=== PATIENT | male | born 1990 | race Caucasian/White ===

== ENCOUNTER 2024-03-30 12:55 | Inpatient (IN) | payer OTHER ==
[~2024-03-30] VITALS: Ht 172.7 cm; Wt 77.6 kg
[2024-03-30 14:00] VITALS: BP 148/97; PULSE 98; RESP 18; TEMP 98.1; O2SAT 98
[2024-03-30] MEDS ORDERED: MECLIZINE HCL 25 MG TABLET PO PRN (15:00)
[2024-03-30] MEDS ORDERED: SENNOSIDES 8.6 MG TABLET PO PRN (15:15)
[2024-03-30] MEDS: LIDOCAINE 5% TRANSDERMAL PATCH TD SCH (17:03)
[2024-03-30 20:00] VITALS: BP 148/81; PULSE 102; RESP 20; TEMP 98.3; O2SAT 97; O2SAT 98
[2024-03-30] MEDS: OxyCODONE HCL 5 MG IR TABLET PO PRN (20:34)
[2024-03-30] MEDS: MELATONIN 3 MG TABLET PO PRN (20:34)
[2024-03-30] MEDS: GABAPENTIN 300 MG CAPSULE PO SCH (20:35)
[2024-03-30] MEDS: ETHYL ALCOHOL 62% ANTISEPTIC NASAL SANITIZER 0.6 ML AMPUL NASAL SCH (20:35)
[2024-03-30] MEDS: -LIDODERM PATCH NOTE- MISC SCH (20:36)
[2024-03-31 06:06] LABS: BASOPHILS % (AUTO) 0.4 % (0.0-2.0); EOSINOPHILS % (AUTO) 2.7 % (1.0-6.0); HEMATOCRIT 43.8 % (41-53); HEMOGLOBIN 14.7 g/dL (13.5-17.5); LYMPHOCYTES # (AUTO) 2.5 K/uL (1.0-4.8); LYMPHOCYTES % (AUTO) 28.6 % (22.0-44.0); MEAN CORPUSCULAR HEMOGLOBIN 29.7 pg (26.0-34.0); MEAN CORPUSCULAR HGB CONC 33.6 G/dL (31.0-37.0); MEAN CORPUSCULAR VOLUME 88 fL (80-100); MONOCYTES # (AUTO) 0.8 K/uL (0.1-1.0); MONOCYTES % (AUTO) 8.6 % (2.0-9.0); NEUTROPHILS # (AUTO) 5.3 K/uL (1.8-7.7); NEUTROPHILS % (AUTO) 59.7 % (40.0-70.0); PLATELET COUNT (AUTO) 297 K/uL (150-450); RED BLOOD CELL COUNT(AUTO) 4.96 MIL/uL (4.50-5.90); RED CELL DISTRIBUTION WIDTH 13.4 % (11.5-14.5); WHITE BLOOD COUNT (AUTO) 8.9 K/uL (4.5-11.0)
[2024-03-31 06:32] LABS: ALANINE AMINOTRANSFERASE 187 U/L (12-78); ALBUMIN 3.3 g/dL (3.4-5.0); ALKALINE PHOSPHATASE 151 U/L (46-116); ANION GAP 6 mmol/L (8-16); ASPARTATE AMINOTRANSFERASE 65 U/L (15-37); BILIRUBIN,TOTAL 0.2 mg/dL (0.1-1.0); CALCIUM, TOTAL 8.7 mg/dL (8.8-10.5); CARBON DIOXIDE 27 mmol/L (22-29); CHLORIDE 100 mmol/L (98-107); CREATININE 0.88 mg/dL (0.60-1.30); GLOMERULAR FILTR. RATE CALC > 60 mL/min (>60); GLUCOSE,RANDOM 107 mg/dL (70-110); POTASSIUM 4.2 mmol/L (3.5-5.1); SODIUM SERUM 133 mmol/L (136-145); TOTAL PROTEIN, SERUM 6.9 g/dL (6.4-8.2); UREA NITROGEN, BLOOD 14 mg/dL (7-18)
[2024-03-31 08:00] VITALS: BP 127/81; PULSE 89; RESP 19; TEMP 97.8; O2SAT 98
[2024-03-31] MEDS: ENOXAPARIN SODIUM 40 MG/0.4 ML PF SYRINGE SQ SCH (08:07)
[2024-03-31] MEDS: MULTIVITAMINS WITH MINERALS, THERAPEUTIC TABLET PO SCH (08:07)
[2024-03-31] MEDS: DICLOFENAC SODIUM 1% 100 GM GEL [2GM] TP SCH (20:31)
[2024-03-31 21:31] VITALS: BP 138/93; PULSE 94; RESP 18; TEMP 97.5; O2SAT 97
[2024-03-31 21:38] VITALS: O2SAT 97
[2024-03-31] MEDS: ACETAMINOPHEN 325 MG TABLET PO PRN (23:11)
[2024-04-01 08:00] VITALS: BP 146/88; PULSE 104; RESP 18; TEMP 97.6; O2SAT 96
[2024-04-01] MEDS: LIDOCAINE 5% TRANSDERMAL PATCH TD SCH (08:36)
[2024-04-01] MEDS: SCOPOLAMINE HYDROBROMIDE 1 MG/72 HOUR PATCH TD SCH (09:58)
[2024-04-01 20:07] VITALS: BP 131/82; PULSE 91; RESP 18; TEMP 98.1; O2SAT 96
[2024-04-01] MEDS: -LIDODERM PATCH NOTE- MISC SCH (20:10)
[2024-04-01] MEDS: DICLOFENAC SODIUM 1% 100 GM GEL [2GM] TP PRN (20:15)
[2024-04-01] MEDS ORDERED: -LIDODERM PATCH NOTE- MISC SCH (21:00)
[2024-04-02 01:57] VITALS: O2SAT 96
[2024-04-02 08:47] VITALS: BP 129/85; PULSE 82; RESP 20; TEMP 97.9; O2SAT 98
[2024-04-02 09:47] VITALS: O2SAT 98
[2024-04-02 20:15] VITALS: BP 126/90; PULSE 107; RESP 18; TEMP 98.1; O2SAT 96
[2024-04-02 21:55] VITALS: O2SAT 96
[2024-04-03 08:43] VITALS: BP 126/87; PULSE 92; RESP 19; TEMP 97.6; O2SAT 97
[2024-04-03] MEDS: BUTALBITAL/ACETAMINOPHEN/CAFFEINE 50-325-40 MG TABLET PO PRN (08:43)
[2024-04-03 10:49] VITALS: O2SAT 97
[2024-04-03 20:05] VITALS: BP 133/88; PULSE 105; RESP 18; TEMP 97.6; O2SAT 97
[2024-04-03 21:23] VITALS: O2SAT 97
[2024-04-04 08:10] VITALS: BP 138/84; PULSE 88; RESP 19; TEMP 97.9; O2SAT 98
[2024-04-04] MEDS: METHOCARBAMOL 500 MG TABLET PO PRN (17:30)
[2024-04-04 20:05] VITALS: BP 133/81; PULSE 110; RESP 18; TEMP 97.9; O2SAT 95
[2024-04-04 21:48] VITALS: O2SAT 95
[2024-04-05 08:11] VITALS: BP 137/86; PULSE 83; RESP 18; TEMP 98.4; O2SAT 98
[2024-04-05 19:54] VITALS: BP 136/85; PULSE 97; RESP 18; TEMP 97.3; O2SAT 97
[2024-04-05 20:25] VITALS: O2SAT 97
[2024-04-06 08:00] VITALS: BP 140/90; PULSE 92; RESP 19; TEMP 97.9; O2SAT 98
[2024-04-06] MEDS ORDERED: ACETAMINOPHEN 325 MG TABLET PO PRN (14:00)
[2024-04-06 20:41] VITALS: BP 149/89; PULSE 107; RESP 18; TEMP 97.9; O2SAT 96
[2024-04-06] MEDS: CYCLOBENZAPRINE HCL 10 MG TABLET PO PRN (20:42)
[2024-04-06 20:45] VITALS: O2SAT 96
[2024-04-06 20:50] VITALS: PULSE 90
[2024-04-07 06:45] LABS: ALANINE AMINOTRANSFERASE 146 U/L (12-78); ALBUMIN 3.3 g/dL (3.4-5.0); ALKALINE PHOSPHATASE 126 U/L (46-116); ANION GAP 7 mmol/L (8-16); ASPARTATE AMINOTRANSFERASE 43 U/L (15-37); BILIRUBIN,TOTAL 0.3 mg/dL (0.1-1.0); CALCIUM, TOTAL 8.9 mg/dL (8.8-10.5); CARBON DIOXIDE 25 mmol/L (22-29); CHLORIDE 107 mmol/L (98-107); CREATININE 0.77 mg/dL (0.60-1.30); GLOMERULAR FILTR. RATE CALC > 60 mL/min (>60); GLUCOSE,RANDOM 113 mg/dL (70-110); POTASSIUM 4.3 mmol/L (3.5-5.1); SODIUM SERUM 139 mmol/L (136-145); TOTAL PROTEIN, SERUM 6.8 g/dL (6.4-8.2); UREA NITROGEN, BLOOD 8 mg/dL (7-18)
[2024-04-07 08:00] VITALS: BP 128/87; PULSE 107; RESP 19; TEMP 97.8; O2SAT 98
[2024-04-07 09:54] VITALS: PULSE 86
[2024-04-07 15:40] VITALS: BP 141/90; PULSE 88; RESP 17; TEMP 98.5; O2SAT 98
[2024-04-07 20:00] VITALS: BP 135/91; PULSE 109; RESP 18; TEMP 97.3; O2SAT 98
[2024-04-07] MEDS: GABAPENTIN 300 MG CAPSULE PO SCH (20:50)
[2024-04-08 08:05] VITALS: BP 131/80; PULSE 85; RESP 18; TEMP 98.2; O2SAT 98
[2024-04-08 18:24] VITALS: O2SAT 98
[2024-04-08 20:00] VITALS: BP 135/95; PULSE 108; RESP 18; TEMP 97.5; O2SAT 97
[2024-04-09 08:11] VITALS: BP 122/74; PULSE 103; RESP 18; TEMP 97.9; O2SAT 97
[2024-04-09 14:09] VITALS: O2SAT 97
[2024-04-09 20:00] VITALS: BP 142/91; PULSE 110; RESP 18; TEMP 98; O2SAT 96
[2024-04-10 08:08] VITALS: BP 129/84; PULSE 92; RESP 18; TEMP 97.6; O2SAT 97
[2024-04-10 11:24] VITALS: O2SAT 97
[2024-04-10 20:06] VITALS: BP 142/89; PULSE 114; RESP 18; TEMP 97.8; O2SAT 97
[2024-04-10 22:04] VITALS: O2SAT 97
[2024-04-11] MEDS ORDERED: LIDO700A15 TP (04:10)
[2024-04-11] MEDS ORDERED: MULT-248 PO (04:10)
[2024-04-11 08:00] VITALS: BP 133/89; PULSE 96; RESP 17; TEMP 97.9; O2SAT 96
[2024-04-11 20:00] VITALS: BP 146/84; PULSE 106; RESP 20; TEMP 98; O2SAT 96
[2024-04-12 08:00] VITALS: BP 133/93; PULSE 99; RESP 19; TEMP 97.9; O2SAT 97
[2024-04-12] MEDS ORDERED: MECL-302 PO (08:39)
[2024-04-12] MEDS ORDERED: ACET-2247 PO (08:39)
[2024-04-12] MEDS ORDERED: CYCL-448 PO ×2 (08:39→10:45)
[2024-04-12] MEDS ORDERED: DICL100G60 TP ×2 (08:39→10:45)
[2024-04-12] MEDS ORDERED: ACET-3862 PO (10:45)
[2024-04-12] MEDS ORDERED: LIDO700A30 TD (10:45)
== END 2024-04-12 14:45 | disposition home health service (06) | DRG 86 ==
LOC: 2WR 14:24
PROVIDERS: ADMIT Physical Medicine & Rehabilitation; ATTEND Physical Medicine & Rehabilitation
DX: S06.5X1A Traumatic subdural hemorrhage with loss of consciousness of 30 minutes or less, initial encounter (principal); E22.2 Syndrome of inappropriate secretion of antidiuretic hormone; E46 Unspecified protein-calorie malnutrition; R56.1 Post traumatic seizures; Z74.09 Other reduced mobility; R74.01 Elevation of levels of liver transaminase levels; S01.01XA Laceration without foreign body of scalp, initial encounter; S92.912A Unspecified fracture of left toe(s), initial encounter for closed fracture; H53.2 Diplopia; R26.9 Unspecified abnormalities of gait and mobility; R40.2430 Glasgow coma scale score 3-8, unspecified time; R41.89 Other symptoms and signs involving cognitive functions and awareness; R51.9 Headache, unspecified; M54.6 Pain in thoracic spine; R25.2 Cramp and spasm; M79.18 Myalgia, other site; S02.0XXA Fracture of vault of skull, initial encounter for closed fracture; F07.81 Postconcussional syndrome; Z68.26 Body mass index [BMI] 26.0-26.9, adult; Y08.89XA Assault by other specified means, initial encounter; Y93.89 Activity, other specified; Y92.89 Other specified places as the place of occurrence of the external cause; Y99.8 Other external cause status
CPT/HCPCS: 80053; 85025; 87081; 92507; 92523; 97110; 97112; 97116; 97140; 97150; 97162; 97167; 97530; 97535; 99366; J1650